=== PATIENT | male | born 1995 | race Caucasian/White ===

== ENCOUNTER 2017-06-12 20:43 | Emergency (ER) | payer MEDICAID ==
--- NOTE | 2017-06-12 21:09 | Emergency Department Record ---
History of Present Illness - General Chief Complaint: Crisis Evaluation Stated Complaint: NEED SOME HELP WITH MENTAL HEALTH Time Seen by Provider: 06/12/17 20:45 Source: Patient Mode of Arrival: Ambulatory Limitations: No limitations Travel/Exposure to [place] Within 21 Days of Symptoms: No - History of Present Illness Initial Comments: 21 yo male presents to ED for evaluation of anger out bursts and family expressing concerns for harm towards them. Patient does a report a history of schizophrenia, has been taking his medications as prescribed, but reports that his anger has been worse lately. Patient denies thoughts of self-harm on examination. MD Complaint: Other Onset/Timin -: Hour(s) Associated Psychiatric Symptoms: Other History of same: Yes Quality: Other Improves With: None Worsens With: None Context: Unsure Associated Symptoms: Denies other symptoms Treatments Prior to Arrival: None - [place] Coma Scale Eye Response: (4) Open spontaneously Motor Response: (6) Obeys commands Verbal Response: (5) Oriented [place] Total: 15 - Related Data Allergies Allergy/AdvReac Type Severity Reaction Status Date / Time adhesive Allergy RASH Verified 06/12/17 21:01 amoxicillin Allergy HIVES Verified 06/12/17 21:01 bupropion [From Wellbutrin] Allergy HIVES Verified 06/12/17 21:02 Review of Systems Constitutional: Denies: Chills, Fever, Malaise, Night sweats Eyes: Denies: Eye discharge, Eye pain ENT: Denies: Congestion, Ear pain Respiratory: Denies: Cough, Dyspnea Cardiovascular: Denies: Chest pain, Dyspnea on exertion Endocrine: Denies: Fatigue, Heat or cold intolerance Gastrointestinal: Denies: Abdominal pain, Nausea, Vomiting Genitourinary: Denies: Incontinence, Retention Musculoskeletal: Denies: Arthralgia, Back pain, Gout, Joint swelling Skin: Denies: Bruising, Change in color Neurological: Denies: Abnormal gait, Confusion, Headache, Seizure Psychiatric: Reports: Other. Denies: Anxiety Hematological/Lymphatic: Denies: Anemia, Blood Clots Past Medical History - SOCIAL HISTORY Smoking Status: Current some day smoker Alcohol Use: None Drug Use: None - RESPIRATORY Hx Respiratory Disorders: No - CARDIOVASCULAR Hx Cardio Disorders: No - NEURO Hx Neuro Disorders: No - GI Hx GI Disorders: No - Hx Genitourinary Disorders: No - ENDOCRINE Hx Endocrine Disorders: No - MUSCULOSKELETAL Hx Musculoskeletal Disorders: Yes - PSYCH Hx Psych Problems: Yes Hx Depression: Yes Comment:: Bipolar; Borderline schizophrenia - HEMATOLOGY/ONCOLOGY Hx Hematology/Oncology Disorders: No Family Medical History Any Significant Family History?: No Hx Diabetes: Brother/Sister Physical Exam - General General Appearance: Alert, Oriented x3, Cooperative, No acute distress Limitations: No limitations - Head Head exam: Atraumatic, Normocephalic, Normal inspection Head exam detail: negative: Abrasion, Contusion, Moses's sign, General tenderness, Hematoma, Laceration - Eye Eye exam: Normal appearance. negative: Conjunctival injection, Periorbital swelling, Periorbital tenderness, Scleral icterus - ENT Ear exam: negative: Auricular hematoma, Auricular trauma Nasal Exam: negative: Active bleeding, Discharge, Dried blood, Foreign body Mouth exam: negative: Drooling, Laceration, Muffled voice, Tongue elevation - Neck Neck exam: Normal inspection. negative: Meningismus, Tenderness - Respiratory Respiratory exam: Normal lung sounds bilaterally. negative: Rales, Respiratory distress, Rhonchi, Stridor - Cardiovascular Cardiovascular Exam: Regular rate, Normal rhythm, Normal heart sounds - GI/Abdominal GI/Abdominal exam: Soft. negative: Rebound, Rigid, Tenderness - Rectal Rectal exam: Deferred - exam: Deferred - Extremities Extremities exam: Normal inspection. negative: Calf tenderness, Pedal edema, Tenderness - Back Back exam: Denies: CVA tenderness (R), CVA tenderness (L) - Neurological Neurological exam: Alert, Normal gait, Oriented X3 - Psychiatric Psychiatric exam: Depressed, Flat affect - Skin Skin exam: Normal color. negative: Abrasion Type of lesion: negative: abrasion Course Vital Signs 06/12/17 20:54 Temperature 97.9 F Pulse Rate 86 Respiratory 16 Rate Blood Pressure 115/71 Pulse Ox 97 - Reevaluation(s) Reevaluation #1: 06/12/17 22:41 Labs reviewed and are grossly unremarkable for an acute process. Will initiate psychiatric bed placement through [facility]. Reevaluation #2: 06/12/17 23:39 Patient reassessed and is sleeping comfortably at this time. Reevaluation #3: 06/13/17 04:53 All records faxed to [facility], awaiting bed placement. Patient continues to be resting calmly and comfortably at this time. Reevaluation #4: 06/13/17 05:55 Patient has been accepted to [facility] for psychiatric evaluation. Medical Decision Making - Lab Data Result diagrams: 06/12/17 21:15 06/12/17 21:15 Disposition Disposition: Transfer Clinical Impression: Suicidal ideation Schizophrenia Qualifiers: Schizophrenia type: unspecified Qualified Code(s): F20.9 - Schizophrenia, unspecified Disposition: Psychiatric Hospital Transfer To: [facility] Reason For Transfer: Psychiatric evaluation Accepting Physician: Iam Time Discussed w/Accepting Physician: 05:55 Condition: (2) Stable Forms: Patient Portal Access Time of Disposition: 05:55 Quality - Quality Measures Quality Measures: N/A - Blood Pressure Screening Does Patient Have Any of the Following: No Blood Pressure Classification: Normal BP Reading Systolic Measurement: 115 Diastolic Measurement: 71 Screening for High Blood Pressure: < Normal BP, F/U Not Required > [[id number]]
[2017-06-12 21:19] LABS: BASO % 0.2 % (0-6); GRAN % 75.5 % (47-80); HEMATOCRIT 44.1 % (42.0-52.0); HEMOGLOBIN 14.7 gm/dl (14.0-18.0); LYMPH % 13.5 % (16-45); MEAN CELL VOLUME 81.8 fl (81-97); MEAN CORPUSCULAR HEMOGLOBIN 27.3 pg (27-33); MEAN CORPUSCULAR HGB CONC 33.3 g/dl (32-36); MEAN PLATELET VOLUME 8.8 fl (7.4-10.4); MONO % 8.8 % (0-9); PLATELET COUNT 221 K/uL (130-400); RED BLOOD COUNT 5.39 M/uL (4.40-5.70); RED CELL DISTRIBUTION WIDTH 13.2 % (11.5-14.5); WHITE BLOOD COUNT W/O DIFF 10.9 K/uL (4.2-12.2)
[2017-06-12 21:31] LABS: BLOOD UREA NITROGEN 12 mg/dL (6-20); CREATININE 0.7 mg/dL (0.7-1.2); EST GLOMERULAR FILTRATION RATE > 60 mL/min
[2017-06-12 21:33] LABS: GLUCOSE,RANDOM 100 mg/dL (74-109)
[2017-06-12 21:36] LABS: ALB/GLOB RATIO 1.7 (1.1-1.8); ALBUMIN 4.4 g/dL (4.0-5.0); ALKALINE PHOSPHATASE 69 U/L (40-129); ALT/SGPT 25 U/L (<41); AST/SGOT 16 U/L (10.0-50.0)
[2017-06-12 21:47] LABS: ACETAMINOPHEN < 5.0 ug/mL (10.0-30.0); SALICYLATE < 0.3 mg/dL (2.8-20); THYROID STIMULATING HORMONE 1.36 uIU/mL (0.270-4.20)
[2017-06-12 22:19] LABS: AMPHETAMINE SCREEN URINE NOT DETECTED; BARBITURATE SCREEN URINE NOT DETECTED; BENZODIAZEPINE SCREEN URINE NOT DETECTED; COCAINE SCREEN URINE NOT DETECTED; METHADONE SCREEN URINE NOT DETECTED; METHAMPHETAMINE SCREEN NOT DETECTED; OPIATE SCREEN URINE NOT DETECTED; OXYCODONE SCREEN URINE NOT DETECTED; PHENCYCLIDINE SCREEN URINE NOT DETECTED; PROPOXYPHENE SCREEN URINE NOT DETECTED; THC SCREEN URINE NOT DETECTED; TRICYCLIC ANTIDEPRESSANT SCRN NOT DETECTED
== END 2017-06-13 07:50 ==
LOC: ER 20:43
DX: R45.851 Suicidal ideations (principal); F21 Schizotypal disorder; F17.210 Nicotine dependence, cigarettes, uncomplicated
CPT/HCPCS: 99285 ×2; 85025; 80053; 84443; 80305; G0480 ×3; 80320; 80329